=== PATIENT | female | born 1995 | race Two or more races ===

== ENCOUNTER → 2023-03-06 | Outpatient (CLI) | payer OTHER | END | disposition home or self-care (01) | LOC: XYW 09:05 | PROVIDERS: ATTEND Nurse Practitioner Family | DX: E04.1 Nontoxic single thyroid nodule (principal) | CPT/HCPCS: 10005; 10022; 76536; 76942 ==

== ENCOUNTER → 2023-10-22 | Outpatient (CLI) | payer OTHER | END | disposition home or self-care (01) | LOC: XY 08:23 | PROVIDERS: ATTEND Nurse Practitioner Family | DX: E04.1 Nontoxic single thyroid nodule (principal) | CPT/HCPCS: 78014; A9516 ==

== ENCOUNTER 2024-11-16 09:57 | Observation (INO) | payer OTHER ==
[~2024-11-16] VITALS: Ht 160 cm; Wt 65.8 kg
--- NOTE | 2024-11-16 11:18 | DVH ---
LIMITED OB ULTRASOUND > 14 WKS: HISTORY: well being TECHNIQUE: Multiple real-time grayscale images of the gravid uterus with duplex Doppler color flow an d M-mode spectral analysis. TRANSDUCER: Transabdominal COMPARISON: None Findings/ IMPRESSION: Cephalic presentation. Posterior placenta. heart rate 142 beats per minute LUH is subjectively within normal limits. Deepest pocket measures 4.6 cm.
[2024-11-16] MEDS: LACTATED RINGER'S 1,000 ML IV ONE ×2 (11:35)
--- NOTE | 2024-11-17 06:13 | DVHDS2 ---
Discharge Summary Date of Admission Nov 16, 2024 at 09:57 Date of Discharge: Nov 16, 2024 Admitting Diagnosis 21 week Hyperemesis Brief Hx & Hospital Course: Doppler US normal Consults/Reason for consult none Condition at Discharge: Good Final Diagnosis/Problems List same Discharge Disposition: Home Discharge Instruct/Medications Diet: Regular Activity: No Restrictions, As Tolerated No Active Prescriptions or Reported Meds Discharge Statement: "Patient was advised to return to the ER or call 911 if any headaches, dizziness, shortness of breath, chest pain, abdominal pain, bleeding, fevers, or worsening of medical condition. Patient was counseled about treatment plan, medications, possible side effects, patientverbalized understanding. All questions were answered to the best of my ability. This discharge took greater then 30 minutes in planning, reviewing documentation, counseling the patient, and discussing with other team members." ASSESSMENT ASSESSMENT Assessment Visit Coding OBGYN Date of Service: Nov 17, 2024 Billing Provider: CAROLINE LOPEZ DO OPTIMIZATION ANALYST Common Visit Codes: 09948-UTS/OBS SAME DATE (LOW), 82659-SAM/OBS SAME DATE (MOD), 92092-RRC/OBS SAME DATE (HIGH) OPTIMIZATION ANALYST Procedure Codes: 85145-02- NON-STRESS TEST CAROLINE LOPEZ DO Nov 17, 2024 06:13
== END 2024-11-16 12:34 | disposition home or self-care (01) ==
LOC: UNDOADMOB 09:57 → LDRP 09:57
PROVIDERS: ADMIT Obstetrics & Gynecology; ATTEND Obstetrics & Gynecology
DX: O21.0 Mild hyperemesis gravidarum (principal); Z98.890 Other specified postprocedural states; Z79.899 Other long term (current) drug therapy; Z3A.21 21 weeks gestation of pregnancy
CPT/HCPCS: 76815; 81002; 94760; 96360; 96361; G0378; 59025